=== PATIENT | female | born 1945 | race Caucasian/White ===

== ENCOUNTER → 2017-06-18 | Outpatient (CLI) | payer OTHER ==
[~2017-06-18] MED LIST: ADVAIR 250-501 EACH INH; CALCIUM + D SO1 EACH PO; CINNAMON ALPHA1 EACH PO; CO Q10100 MG PO; COMBIVENT INH; DEXILANT60 MG PO; EVISTA; FISH OIL 1,0001 EAC5 PO; FLU SHOT; IBUPROFEN 800800 M1 PO; MIRALAX17 GM PO; MIRAPEX0.125 MG PO; NEURONTIN250 MG/5 M PO; NORCO 10-325 T1 EACH PO; NORCO 5-325 TA1 EACH PO; PROCARDIA XL30 MG; PROLIA60 MG/1 ML SQ; TRAMADOL 50 MG50 MG PO; VITAMIN B-12100 MC1 PO; VOLTAREN GEL 1100 G2 TOP; [UNRECOGNIZED DRUG - OTHER]
--- NOTE | 2017-06-27 09:00 | PAINCON ---
[place] [address] PAIN MANAGEMENT CONSULTATION Name: PILAR FERMIN Room: [facility]#: [id number] Admission: 06/18/17 Attend Phys: Jagdish Fuentes DO Discharge: Date of : 45 Report #: [id number] THIS REPORT FOR: //name// CC: SUKHJINDER Fuentes DATE OF SERVICE: 06/18/2017 CHIEF COMPLAINT: Low back pain, left lower extremity pain and paresthesias. HISTORY OF PRESENT ILLNESS: As you know, the patient is a 71-year-old female who returns today in followup visit with recurrent low back pain, left lower extremity pain with paresthesias. The patient places pain score at 6/10. She reports 50% improvement in overall pain with previous epidural injection. She states pain is exacerbated with activities, cold temperature, walking, sitting, standing, lifting and bending; improves with medications, heat, cold compresses and epidural injections. She returns today in followup visit to undergo next in the series of epidural injections in hopes of improving pain further. ALLERGIES: No known drug allergies. CURRENT MEDICATIONS: Calcium carbonate, Prolia, Dexilant, Voltaren, Advair, Motrin, ipratropium bromide, nifedipine, MiraLax, Ultram, Mirapex. SOCIAL HISTORY: The patient continues to smoke. Denies IV or illicit drug use. Denies any chronic alcohol use. She is unaccompanied today. IMAGING: No new imaging available. PHYSICAL EXAMINATION: VITAL SIGNS: Blood pressure 149/76, pulse is 96, respiratory rate 16 and unlabored. The patient is 94% on room air, current temperature 98.6 degrees Fahrenheit, height 5 feet 1 inch tall, weight 127.6 pounds, BMI calculated at 24.5. GENERAL: Well-developed, well-nourished, well-hydrated 71-year-old female, appears her stated age, placing current pain score 6/10. HEENT: Normocephalic, atraumatic. Pupils equal, round, reactive to light. Extraocular muscles are intact. Sclerae nonicteric, without injection. EXTREMITIES: Show no clubbing, no cyanosis, no edema. MUSCULOSKELETAL: Seated straight leg raising negative. Supine straight leg raising positive left. EDITH test negative. Gait slightly antalgic favoring left lower extremity over right. ASSESSMENT: 1. Sympt[place] [address] PAIN MANAGEMENT CONSULTATION Name: PILAR FERMIN Room: [facility]#: [id number] Admission: 06/18/17 Attend Phys: Jagdish Fuentes DO Discharge: Date of : 45 Report #: [id number] 2. Lumbosacral spondylosis with radiculopathy. 3. Lumbar degeneration. 4. Facet arthropathy of the lumbar spine. 5. Chronic intractable pain. 6. Tobacco habituation. PLAN: 1. The patient has returned today in followup visit requesting to undergo the next in a series of epidural injections. The patient reported about 50% improvement in overall pain with previous epidural injection. Unfortunately, the patient has had a recurrence of low back pain, left lower extremity pain for which she now provides pain score of 6/10. She returns today to undergo the next in a series of epidural injections. She has been advised the risks and benefits of the procedure, states understood and wished to proceed. 2. The patient and I had a long discussion today about the effects of chronic nicotine exposure and chronic pain. We have advised the patient to discontinue smoking as this is promoting chronic pain, this is mainly done through the descending pain pathway. We discussed this with the patient today. The patient understands the risks that she continues to undergo with continuation of smoking. I have advised the patient to discontinue his activity as this is noted to propagate chronic pain issues. She will consider her options. We did offer the patient assistance with discontinuation of tobacco use. This would include medication management and psychiatric assistance. 3. We will see the patient back in followup visit on an as needed basis for next in a series of epidural injections. PROCEDURE NOTE DESCRIPTION OF PROCEDURE: Lumbar epidural steroid injection under fluoroscopic guidance. After obtaining written consent, the patient was taken back to fluoroscopy suite, placed in prone position with pillow under abdomen to decrease lumbar lordosis. Skin overlying lumbosacral area then prepped and draped in aseptic fashion. Lumbar intervertebral spaces were identified by AP fluoroscopy. Skin and subcutaneous tissue overlying target site of injection was anesthetized with 3 mL of 1% lidocaine. A 20-gauge 3-1/2 inch Tuohy needle was advanced under fluoroscopic guidance towards the epidural space using a left paramedian approach. Epidural space identified using loss of resistance to air technique. After negative aspiration for heme or cerebrospinal fluid, 1 mL of Omnipaque was injected. Lumbar epidurogram was confirmed using both AP and lateral fluoroscopy. After negative aspiration for heme or cerebrospinal fluid, 5 mL of a solution containing 2 mL 40 mg per mL, 80 mg total triamcinolone, 3 mL lidocaine 1% injected slowly. Needle retracted shelter, flushed with 1 mL of 1% [place] [address] PAIN MANAGEMENT CONSULTATION Name: PILAR FERMIN Room: [facility]#: [id number] Admission: 06/18/17 Attend Phys: Jagdish Fuentes DO Discharge: Date of : 45 Report #: [id number] Sterile bandage was placed over injection site. The patient tolerated the procedure well, carefully escorted to Recovery Room in stable condition. No apparent complication. After meeting discharge criteria, the patient discharged home. <ELECTRONICALLY SIGNED> By: Jagdish Fuentes DO 06/27/17 0900 [id number] Fuentes DO /nt
== END | disposition home or self-care (01) ==
LOC: M.PC 05-07 02:27
DX: M51.36 Other intervertebral disc degeneration, lumbar region (principal); M47.27 Other spondylosis with radiculopathy, lumbosacral region; M46.96 Unspecified inflammatory spondylopathy, lumbar region; G89.29 Other chronic pain; F17.210 Nicotine dependence, cigarettes, uncomplicated; Z79.899 Other long term (current) drug therapy; Z98.890 Other specified postprocedural states

== ENCOUNTER → 2017-08-16 | Outpatient (CLI) | payer OTHER | LOC: M.RAD 09:27 | DX: N64.4 Mastodynia (principal); R92.8 Other abnormal and inconclusive findings on diagnostic imaging of breast ==

== ENCOUNTER → 2017-09-11 | Outpatient (CLI) | payer OTHER ==
--- NOTE | 2017-10-05 09:09 | PAINCON ---
[address] [address] PAIN MANAGEMENT CONSULTATION Name: PILAR FERMIN Room: [facility]#: [id number] Admission: 09/11/17 Attend Phys: Romulo Barrett MD Discharge: Date of : 45 Report #: [id number] THIS REPORT FOR: //name// CC: Darryn Barrett DATE OF SERVICE: 09/11/2017 CHIEF COMPLAINT: "Pain in the low back and pain going down into my left leg." HISTORY OF PRESENT ILLNESS: The patient is a 72-year-old female who has been seen in the pain clinic. She has been followed by Dr. Jagdish Fuentes. She has had epidural steroid injections in the past. She is having pain and discomfort, which is radiating down into her left leg. She has been having pain for years. The pain has been problematic since 2011. She has undergone epidural steroid injections and gleaned benefits from these. She rates her pain as a 7/10 at this juncture. She notes that working exercise, walking on the treadmill and activities of this nature has gotten progressively worse over the past 7 months. Epidural steroid injections in the past have provided 90% pain improvement. Notes that on 09/05/2017, pain radiated down into her low back, left leg and pain level is risen to 6-7, now it is a 7/10 on most days. Finds that hydrocodone, ibuprofen, tramadol, still are helpful. ALLERGIES: No known drug allergies. MEDICATIONS: Calcium/vitamin D3/vitamin K, Prolia 60 mg syringe subq to increase bone density, Dexilant 60 mg for heartburn, Voltaren gel 1% 2 grams q.i.d. for pain, Advair 250/50 one puff b.i.d., ibuprofen 800 mg, Combivent 14.7 inhaler 1 puff q.i.d. p.r.n., Procardia 30 mg, MiraLax 17 grams, Ultram 50 mg, shingles vaccine in 2012, Mirapex at bedtime for restless leg syndrome. PAST MEDICAL HISTORY: 1. 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 2. Lumbar degeneration. 3. Facet arthropathy of the lumbar spine. 4. Chronic intractable pain. 5. Tobacco habituation. 6. Hypertension. 7. Stomach problems. 8. Gastroesophageal problems. 9. Chronic colon problems. 10. Joint disease/arthritis. 11. Pulmonary problems. 12. Chronic [place] [address] PAIN MANAGEMENT CONSULTATION Name: PILAR FERMIN Room: [facility]#: [id number] Admission: 09/11/17 Attend Phys: Romulo Barrett MD Discharge: Date of : 45 Report #: [id number] SURGICAL HISTORY: Carpal tunnel 3 least. SOCIAL HISTORY: She is retired. Smokes 1-1/2 packs of cigarettes per day, has smoked for 50 years. Denies use of alcohol. REVIEW OF SYSTEMS: Generally healthy, night sweats, fatigue, ringing in the ears, hearing loss, chronic frequent cough, asthma/wheezing, awakened at night to urinate, lightheadedness, numbness and tingling sensation in the lower extremities, insomnia, slow to heal, easy bruising. LABORATORY DATA: No new laboratory values available at the time of her review. PAIN CLINIC ASSESSMENT: 1. Osteoarthritis. 2. Height 5 feet 1 inch tall. 3. Weight 133 pounds, BMI is 25. 4. Vital signs: Blood pressure 149/70, heart rate 94, respiratory rate 16, room air saturation 93, temperature 98.3. 5. Pain intensity 12/04. 6. Fall risk. The patient has not fallen in the last 3 months. 7. Blood thinner. The patient is on a blood thinner. 8. Hypertension. The patient is being treated for hypertension. 9. Opioid greater than 6 months. The patient use hydrocodone for pain control. 10. Risk assessment tool. 11. Functional assessment tool. 12. Recreational drug use. Denies use of recreational drugs. 13. Tobacco: The patient smokes 2-5 cigarettes daily. States that she has smoked for 50 years. 14. Alcohol: The patient denies regular use of alcoholic beverages. PHYSICAL EXAMINATION: General: The patient is a well-developed female. She appears her stated age. She is alert and oriented x 3. Speech is fluent. Affect is appropriate. HEENT: Normocephalic, atraumatic. Extraocular eye muscles intact. Sclerae nonicteric. Mucous membranes are moist. Hearing is within normal limits. NECK: Without adenopathy or JVD. Good range of motion. HEART: Regular rate. S1, S2. LUNGS: Somewhat decrease and difficult to hear in the lower lung hernandez. ABDOMEN: Nontender. MUSCULOSKELETAL: Without significant scoliosis, kyphosis or lordosis. Upper extremity muscle strength is judged to be 5/5 for the major muscle groups. Lower extremity pain in the low back with pain radiating down into the left leg with sensory changes with numbness, tingling and weakness in the L5-S1 dermatomal distribution. The patient continues to walk with a slight antalgic gait. [address] [place] [address] PAIN MANAGEMENT CONSULTATION Name: PILAR FERMIN Room: [facility]#: [id number] Admission: 09/11/17 Attend Phys: Romulo Barrett MD Discharge: Date of : 45 Report #: [id number] IMPRESSION: 1. Symptomatic lumbar radiculopathy. 2. Lumbar lumbar spondylosis with radiculopathy. 3. Lumbar degeneration. 4. Facet arthropathy of the lumbar spine. 5. Chronic intractable pain. 6. Tobacco habituation. 7. Hypertension. 8. History of pneumonia, lower lobe in 2017 in April. 9. Colon problems. 10. Stomach problems. 11. Joint disease/arthritis. 12. Restless legs syndrome. RECOMMENDATIONS: We discussed treatment options with the patient. It appears that she continues to have pain and discomfort, which is problematic. Epidural steroid injection in the past have been beneficial. She has gleaned greater than 90% improvement. At this juncture, she feels she would like to proceed with another epidural steroid injection. Risks and benefits of the procedure were reviewed. They were discussed. The patient will return in the pain clinic at which time she will then undergo an epidural steroid injection. We would like to thank you for letting us participate in her care. We hope she continues to improve. <ELECTRONICALLY SIGNED> By: Rmoulo Barrett MD 10/05/17 0909 1234 [id number]. Riccardo Barrett MD /clifford
== END ==
LOC: M.PC 01:28
DX: M19.90 Unspecified osteoarthritis, unspecified site (principal); M54.16 Radiculopathy, lumbar region; M47.26 Other spondylosis with radiculopathy, lumbar region; I10 Essential (primary) hypertension; G89.29 Other chronic pain

== ENCOUNTER → 2017-09-13 | Outpatient (CLI) | payer OTHER ==
--- NOTE | 2017-10-05 09:09 | PAINCON ---
[address] [address] PAIN MANAGEMENT CONSULTATION Name: PILAR FERMIN Room: [facility].#: [id number] Admission: 09/13/17 Attend Phys: Romulo Barrett MD Discharge: Date of : 45 Report #: [id number] THIS REPORT FOR: //name// CC: MD Romulo [place] DATE OF SERVICE: 09/13/2017 CHIEF COMPLAINT: Pain in the low back and down into the left leg. HISTORY OF PRESENT ILLNESS: The patient is a 72-year-old female who has been seen in the pain clinic by Dr. Jagdish Fuentes. She is having pain and discomfort in her low back with pain radiating down into her left leg. This is my first visit with the patient. She states that she has been having pain for years. She has undergone a number of procedures in the past which have been beneficial. She has had pain since 2011. Describes the pain as a continuous aching, gnawing, throbbing, sharp pain and often times it can be anywhere from 6-10 on a pain scale. Typically, her pain has been resolved favorably with the injections. At this juncture, she would like to proceed with an injection. She generally gets about 90% relief. She noticed that her pain worsened recently. She feels like she lifted too much this past week. The injection in May of 2017 provided 90% improvement and this continued to do well until 09/05/2017 when she noticed pain that radiated down to her low back into her left leg and caused pain to rise to the level of 6-7/10 at this juncture. She has continued to use hydrocodone, ibuprofen p.r.n. and tramadol as well to help control the pain. ALLERGIES: No known drug allergies. MEDICATIONS: Calcium/vitamin D3/vitamin K, Prolia 60 mg syringe subq for bone density, Dexilant 60 mg capsules for heartburn, Voltaren gel 1% 2 grams q.i.d. for pain, Advair 250/50 one puff b.i.d., ibuprofen 800 mg, Combivent 14.7 inhaler 1 puff q.i.d. p.r.n., Procardia 30 mg, MiraLax 17 grams, Ultram 50 mg, shingles vaccine 2012, Mirapex at bedtime for restless legs syndrome. PAST MEDICAL HISTORY: 1. Symptomatic lumbar radiculopathy with lumbosacral spondylosis with radiculopathy. 2. Lumbar degeneration. 3. Facet arthropathy of the lumbar spine. 4. Chronic intractable pain. 5. Tobacco habituation. 6. Hypertension. 7. Stomach problems. 8. [place]astro[place] [address] PAIN MANAGEMENT CONSULTATION Name: PILAR FERMIN Room: [facility]#: [id number] Admission: 09/13/17 Attend Phys: Romulo Barrett MD Discharge: Date of : 45 Report #: [id number] 9. Colon problems. 10. Joint disease/arthritis. 11. Pulmonary problems/COPD. PAST SURGICAL HISTORY: Carpal tunnel surgery. SOCIAL HISTORY: She is retired. Smokes 1/2 pack of cigarettes per day, has smoked for 50 years. Denies use of alcoholic beverages. REVIEW OF SYSTEMS: Indicates generally good health, night sweats, fatigue, ringing in the ears, hearing loss, chronic frequent cough, asthma/wheezing. awakens at night to urinate, lightheadedness, numbness and tingling sensation in the lower extremity, insomnia, slow to heal, easy bruising. LABORATORY DATA: No laboratory values are available at the time of our interview. PAIN CLINIC ASSESSMENT: 1. Osteoarthritis. 2. Height 5 feet 1 inch. Weight 133 pounds, BMI is 25. 3. Vital Signs: Blood pressure 148/71, heart rate 93, respiratory rate 16, room air saturation 92, temperature 98.4. Pain intensity 7/10. Pain is worsened while the patient was working in her garage. Fall risk: The patient has not fallen in the last 3 months. 4. Blood thinner: The patient is on a blood thinner. 5. Hypertension. The patient is being treated for hypertension. 6. Opioid therapy greater than 6 months. The patient rarely uses hydrocodone medication for pain control. 7. Risk assessment tool. 8. Functional assessment tool. 9. Recreational use. 10. The patient denies use of recreational drugs. 11. Tobacco: The patient smokes 2-5 cigarettes per day, has smoked for 50 years. 12. Alcohol: The patient denies the use of alcoholic beverages. PHYSICAL EXAMINATION: GENERAL: The patient is a well-developed female. She appears her stated age. ORIENTATION: The patient is alert and oriented x 3. AFFECT: The patient's affect is appropriate. Speech is fluent. HEENT: Normocephalic, atraumatic. Extraocular muscles are intact. Mucous membranes are moist. Sclerae is nonicteric. Hearing is within normal limits. NECK: Without adenopathy or JVD. Good range of motion. HEART: Regular rate. S1, S2. LUNGS: Somewhat decreased. Difficult to hear in the lower lung hernandez. ABDOMEN: Nontender. [address] [place] [address] PAIN MANAGEMENT CONSULTATION Name: PILAR FERMIN Room: [facility]#: [id number] Admission: 09/13/17 Attend Phys: Romulo Barrett MD Discharge: Date of : 45 Report #: [id number] MUSCULOSKELETAL: Within normal limits without significant scoliosis, kyphosis or lordosis. Upper extremity muscle strength is judged to be 5/5 for the major muscle groups in the upper extremity without sensory changes. Lower extremity, pain in the low back area with pain radiating down into the left leg with numbness and tingling in the L5-S1 distribution. The patient walks with slight antalgic gait. IMPRESSION: 1. Symptomatic lumbar radiculopathy. 2. Lumbar spondylosis with radiculopathy. 3. Lumbar degeneration. 4. Facet arthropathy of the lumbar spine. 5. Chronic intractable pain. 6. Tobacco habituation. 7. Hypertension. 8. History of pneumonia, lower lobe, 04/2017. 9. Colon problems. 10. Stomach problems, joint disease/arthritis. 11. Restless leg syndrome. RECOMMENDATIONS: We discussed treatment options with the patient. Risks and benefits of an epidural steroid injection were again reviewed. The patient has been successful with epidural steroid injections in the past. Notes that her pain improved by about 90% after the last injection. It felt like her activity level increased. In the last weekend, noted worsening of pain and discomfort with resumption of pain in the lower extremity, now rated as 7/10. We will proceed with an epidural steroid injection. Risks and benefits of the procedure were again reviewed. They could include but are not limited to infection, increased muscle soreness, headache, bleeding, paralysis, worsening of pain, spinal headache. The patient elects to proceed. PROCEDURE NOTE: The patient was placed in the prone position. Fluoroscopy was used to identify the L5-S1 area. Anterior, posterior as well as lateral usage of the fluoroscopy was used. After the target area was noted, a 17-gauge Tuohy was advanced into the epidural space. The area was previously be infiltrated with 0.5% bupivacaine. A total of 80 mg Depo-Medrol, 40 mg triamcinolone and 2 mL of 0.25% bupivacaine was injected. The patient tolerated the procedure well. There were no complications. She remained in the pain clinic for an appropriate amount of time. She will follow up in the future as needed. We would like to thank you for letting us participate in her care. We hope she continues to improve. <ELECTRONICALLY SIGNED> By: Romulo Barrett MD 10/05/17 0909 [id number]. Riccardo Barrett MD /clifford
== END | disposition home or self-care (01) ==
LOC: M.PC 03:26
DX: M51.16 Intervertebral disc disorders with radiculopathy, lumbar region (principal); M47.27 Other spondylosis with radiculopathy, lumbosacral region; M46.96 Unspecified inflammatory spondylopathy, lumbar region; G89.29 Other chronic pain; I10 Essential (primary) hypertension; K21.9 Gastro-esophageal reflux disease without esophagitis; M19.90 Unspecified osteoarthritis, unspecified site; G25.81 Restless legs syndrome; F17.210 Nicotine dependence, cigarettes, uncomplicated; Z87.19 Personal history of other diseases of the digestive system; Z79.891 Long term (current) use of opiate analgesic; Z79.01 Long term (current) use of anticoagulants; Z98.890 Other specified postprocedural states; Z79.899 Other long term (current) drug therapy

== ENCOUNTER → 2017-11-08 | Outpatient (CLI) | payer OTHER | LOC: M.WC 09:55 | DX: I87.332 Chronic venous hypertension (idiopathic) with ulcer and inflammation of left lower extremity (principal); L97.822 Non-pressure chronic ulcer of other part of left lower leg with fat layer exposed; J45.20 Mild intermittent asthma, uncomplicated; K21.9 Gastro-esophageal reflux disease without esophagitis; Z68.23 Body mass index [BMI] 23.0-23.9, adult; M19.90 Unspecified osteoarthritis, unspecified site; F17.200 Nicotine dependence, unspecified, uncomplicated ==

== ENCOUNTER → 2017-11-15 | Outpatient (CLI) | payer OTHER | LOC: M.WC 03:55 | DX: L97.821 Non-pressure chronic ulcer of other part of left lower leg limited to breakdown of skin (principal); I10 Essential (primary) hypertension; K21.9 Gastro-esophageal reflux disease without esophagitis; M19.90 Unspecified osteoarthritis, unspecified site; J45.909 Unspecified asthma, uncomplicated; F17.200 Nicotine dependence, unspecified, uncomplicated ==

== ENCOUNTER → 2017-11-19 | Outpatient (CLI) | payer OTHER | LOC: M.WC 11:00 | DX: I87.332 Chronic venous hypertension (idiopathic) with ulcer and inflammation of left lower extremity (principal); L97.821 Non-pressure chronic ulcer of other part of left lower leg limited to breakdown of skin; K21.9 Gastro-esophageal reflux disease without esophagitis; M19.90 Unspecified osteoarthritis, unspecified site; J45.20 Mild intermittent asthma, uncomplicated; F17.200 Nicotine dependence, unspecified, uncomplicated ==

== ENCOUNTER → 2017-11-22 | Outpatient (CLI) | payer OTHER | LOC: M.WC 03:22 | DX: I87.332 Chronic venous hypertension (idiopathic) with ulcer and inflammation of left lower extremity (principal); L97.821 Non-pressure chronic ulcer of other part of left lower leg limited to breakdown of skin; J45.20 Mild intermittent asthma, uncomplicated; K21.9 Gastro-esophageal reflux disease without esophagitis; Z68.23 Body mass index [BMI] 23.0-23.9, adult; J45.909 Unspecified asthma, uncomplicated; M19.90 Unspecified osteoarthritis, unspecified site; F17.200 Nicotine dependence, unspecified, uncomplicated ==

== ENCOUNTER → 2018-02-28 | Outpatient (CLI) | payer OTHER ==
--- NOTE | 2018-04-10 15:49 | PAINCON ---
[address] [address] PAIN MANAGEMENT CONSULTATION Name: PILAR FERMIN [id number] Admission: 02/28/18 Attend Phys: Romulo Barrett MD Discharge: Date of : 45 Report #: [id number] THIS REPORT FOR: //name// CC: Darryn Barrett DATE OF SERVICE: 02/28/2018 CHIEF COMPLAINT: Low back pain and pain down in the left leg. HISTORY OF PRESENT ILLNESS: The patient is a 72-year-old female who has been seen in the Pain Clinic because of lumbar radicular pain. She has undergone epidural steroid injections over the years. She is gleaned benefits from these. She is returning today indicating that she is having pain in her back, hip down into the buttocks. She underwent an injection in 08/2017. She received 100% relief from the pain. She has noticed a gradual return of pain and discomfort to the point that now she is at a level of 6/10. It involves her left leg. She is having some numbness in this area. She has returned for an injection. Finds that [place] 5/325 helpful. She rarely uses them. Uses ibuprofen p.r.n. and tramadol p.r.n. Pain has been problematic since about 2011. It tends to wax and wane. Denies any new trauma. Denies any bowel or bladder changes. ALLERGIES: No known drug allergies. MEDICATIONS: Calcium/vitamin D3/vitamin K, Prolia 60 mg syringe subq for bone density, Dexilant 60 mg for heartburn, Voltaren gel 1% q.i.d. to the affected upper extremity area, Advair 250/50 one puff b.i.d., ibuprofen 800 mg, Combivent 14 mg inhaler 1 puff q.i.d. p.r.n., Procardia 30 mg, MiraLax 17 grams, Ultram 50 mg, shingles vaccine in 2012, Mirapex at bedtime for restless legs syndrome. PAIN CLINIC ASSESSMENT/PQRS: 1. Osteoarthritis. The patient does have some arthritic problems. She has not been treated for rheumatoid arthritis. 2. Height 5 feet 1 inch, weight 129 pounds and BMI is 24.5. 3. Vital signs: Blood pressure 163/67, heart rate 95, respiratory rate 16, room air saturation 96% and temperature 98.3. 4. Pain intensity 6/10. 5. The patient has not fallen in the last 3 months. 6. Blood thinner. The patient is not on a blood thinning medication. 7. Hypertension. The patient is being treated for hypertension. 8. Opioid therapy. Greater than 6 weeks. The patient rarely uses hydrocodone to control pain. 9. Risk assessment tool, low for opioid use. 10. Functional assessment tool. 11. Recreational drug use: The patient denies. 12. Tobacco: The patient smokes 2-5 cigarettes daily smoked [place] [address] PAIN MANAGEMENT CONSULTATION Name: ZANDERPILAR Ekaterina Room: [facility]#: [id number] Admission: 02/28/18 Attend Phys: Romulo Barrett MD Discharge: Date of : 45 Report #: [id number] 13. Alcohol: The patient denies use of alcoholic beverages. PHYSICAL EXAMINATION: GENERAL: The patient is a well-developed white female. Appears her stated age. She is alert and oriented x 3. Affect is appropriate. Speech is fluent. HEENT: Normocephalic, atraumatic. Extraocular eye muscles intact. Sclerae nonicteric. Mucous membranes are moist. Hearing is within normal limits. NECK: Without adenopathy or JVD. Good range of motion. HEART: Regular rate. S1, S2. LUNGS: Somewhat decreased difficulty hear secondary to patient effort. ABDOMEN: Nontender. Bowel sounds present. MUSCULOSKELETAL: Without significant scoliosis, kyphosis or lordosis. Upper extremity muscle strength is judged to be 5-/5 for the major muscle groups without sensory change lower extremity. The patient has pain and discomfort radiating down the lower portion of her back with pain radiating down into the left leg in the L5-S1 dermatomal distribution. Notes some pain in the leg and walks with an antalgic gait. IMPRESSION: 1. Lumbar radiculopathy, L5-S1 nerve root irritation. 2. Lumbar spondylosis with radiculopathy. 3. Lumbar degeneration. 4. Facet arthropathy of the lumbar spine. 5. Chronic intractable pain. 6. Tobacco habituation. 7. Hypertension. 8. History of pneumonia, lower lobe in 04/2017. 9. Colon problems. 10. Stomach problems. 11. Joint disease/arthritis. 12. Restless leg syndrome. RECOMMENDATIONS: We discussed treatment options with the patient. Risks and benefits of an epidural steroid injection were discussed. The patient gleaned 100% improvement after the last epidural steroid injection. She has returned today noticing a recurrence of pain. It has been slow in nature. She rates it as 6/10 at this juncture. Given that she has had great results in the past. I think it would be reasonable to proceed with another injection. The risks and benefits of the procedure were again reviewed with the patient. Possible complication of the procedure, which could include, but are not limited to infection, increased muscle soreness, headache, bleeding, no improvement in pain, worsening of pain and the patient elects to proceed. PROCEDURE NOTE: The patient was taken to the procedure area. She was assisted in getting on the examination table. Her back was sterilely prepped with a Betadine solution. Pillow was placed under [place] [address] PAIN MANAGEMENT CONSULTATION Name: PILAR FERMIN Room: [facility]#: [id number] Admission: 02/28/18 Attend Phys: Romulo Barrett MD Discharge: Date of : 45 Report #: [id number] positioning. Fluoroscopy using anterior and posterior as well as lateral viewing was implemented. The patient's back was sterilely prepped with a chlorhexidine solution and allowed to dry. A 0.25% bupivacaine was infiltrated at the left L5-S1 interspace. Fluoroscopy using a left lateral direction of the Tuohy needle was implemented. After appropriate placement, a total of 80 mg Depo-Medrol, 40 mg triamcinolone and 2 mL of 0.25% bupivacaine was injected. The patient tolerated the procedure well. There were no complications. She was taken to the recovery room where she remained for an appropriate amount of time. She will follow up in the future as needed. We would like to thank you for letting us participate in her care. A total of 9 seconds fluoroscopy time was used. Thank the patient's pain had decreased to 0 at the time of discharge. We would like to thank you for letting us participate in her care. We hope she continues to improve. <ELECTRONICALLY SIGNED> By: Romulo Barrett MD 04/10/18 1549 [id number]. Riccardo Barrett MD /nt
== END | disposition home or self-care (01) ==
LOC: M.PC 04:47
DX: M51.16 Intervertebral disc disorders with radiculopathy, lumbar region (principal); M47.26 Other spondylosis with radiculopathy, lumbar region; M12.88 Other specific arthropathies, not elsewhere classified, other specified site; G89.29 Other chronic pain; I10 Essential (primary) hypertension; F17.210 Nicotine dependence, cigarettes, uncomplicated; G25.81 Restless legs syndrome; Z79.899 Other long term (current) drug therapy; Z79.891 Long term (current) use of opiate analgesic; Z98.890 Other specified postprocedural states

== ENCOUNTER → 2018-08-15 | Outpatient (CLI) | payer OTHER ==
--- NOTE | ~2018-08-15 | PAINCON ---
[address] [address] PAIN MANAGEMENT CONSULTATION Name: PILAR FERMIN Room: [facility].#: [id number] Admission: 08/15/18 Attend Phys: Romulo Barrett MD Discharge: Date of : 45 Report #: [id number] THIS REPORT FOR: //name// CC: Darryn Barrett DATE OF SERVICE: 08/15/2018 CHIEF COMPLAINT: Low back pain with pain radiating down to the left leg with numbness and tingling. HISTORY: The patient is a 73-year-old female who has been followed in the Pain Clinic because of low back pain. She has undergone epidural steroid injections. These have been beneficial over the years. Continues to have pain that waxes and wanes. She has noticed that with activity, walking, sitting, standing, lifting and bending increase pain. Finds her medications are helpful. Rest is helpful. Notes that she received great relief over 4 months benefit from the last injection in 02/2018. She has returned today for another injection. Over the last month, she has noticed increased pain level. Rates it as a 7-8/10. She feels that there is some numbness and weakness in the lower extremities on the left side in her left leg. She has been using the [place] and ibuprofen as well as tramadol to help control the pain. ALLERGIES: No known drug allergies. MEDICATIONS: Calcium, vitamin D3, vitamin K, Prolia 60 mg syringe subq for bone density, Dexilant 60 mg for heartburn, Voltaren gel 1% q.i.d. to the affected upper extremity, Advair 250 mg/50 one puff b.i.d., ibuprofen 800 mg, Combivent 14 mg inhaler 1 puff q.i.d. p.r.n., Procardia 30 mg, MiraLax 17 grams, Ultram 50 mg, shingles vaccine 2013, Mirapex at bedtime for restless leg. PAIN CLINIC ASSESSMENT/PQRS. 1. The patient has some arthritic changes in the lower portion of her back. She is not being treated for rheumatoid arthritis. 2. Height 5 feet 1 inch, weight 131 pounds, BMI is 24. 3. Blood pressure 134/52, heart rate 99, respiratory rate 16, room air saturation 95%, temperature 98.2. 4. Pain intensity 01/04. 5. Fall risk. The patient has not fallen in the last 3 months. 6. Blood thinner. The patient is not on a blood thinning medication. 7. Hypertension. The patient is being treated for hypertension. 8. Opioid greater than 6 weeks. The patient rarely uses hydrocodone to help with pain control. 9. Risk assessment tool, low for opioid use. 10. Functional assessment tool. 11. Recreational drug use. The patient denies use [place] [address] PAIN MANAGEMENT CONSULTATION Name: PILAR FERMIN Room: [facility]#: [id number] Admission: 08/15/18 Attend Phys: Romulo Barrett MD Discharge: Date of : 45 Report #: [id number] 12. Tobacco: The patient smokes 2-5 cigarettes daily and has for the last 50 years. 13. Alcohol: The patient denies use of alcoholic beverages. PHYSICAL EXAMINATION: GENERAL: The patient is well-developed, well-nourished white female. Appears her stated age. She is alert and oriented x 3. Affect is appropriate. Speech is fluent. HEENT: Normocephalic, atraumatic. Extraocular eye muscles intact. Sclerae nonicteric. Mucous membranes are moist. Hearing is within normal limits. NECK: Without adenopathy or JVD. HEART: Regular rate. S1, S2. LUNGS: Decreased secondary to poor patient effort. ABDOMEN: Nontender. Bowel sounds are present. MUSCULOSKELETAL: Without significant scoliosis, kyphosis or lordosis. Upper extremity muscle strength is judged to be 4+/5 for the major muscle groups in the upper extremity. The patient has some pain and discomfort with pain that is radiating down into the left L5-S1 distribution. Muscle strength in the lower extremities is judged to be 4+/5 for the major muscle groups in the lower extremity. The patient does walk with an antalgic gait. IMPRESSION: 1. Lumbar radiculopathy, L5-S1 nerve root irritation. 2. Lumbar spondylosis with radiculopathy. 3. Lumbar degeneration. 4. Facet arthropathy of the lumbar spine. 5. Chronic intractable pain. 6. Tobacco habituation. 7. Hypertension. 8. History of pneumonia, lower lobe, 04/2017. 9. Colon problems. 10. Stomach problems. 11. Joint disease/arthritis. 12. Restless leg syndrome. RECOMMENDATIONS: We discussed treatment options with the patient. Risks and benefits of an epidural steroid injection were discussed. They include but are not limited to infection, worsening pain, no improvement in pain, trauma, spinal headache and the patient elects to proceed. PROCEDURE NOTE: The patient was taken to the procedure area. She was assisted in getting on the examination table. A pillow was placed under her abdomen to bolster improve positioning. Fluoroscopy using anterior, posterior as well as lateral viewing were implemented. The patient's back was sterilely prepped with a Betadine solution. The L5-S1 area was sterilely prepped with Betadine. It was allowed to dry. A 25-gauge needle was then advanced [place] [address] PAIN MANAGEMENT CONSULTATION Name: PILAR FERMIN Room: [facility]#: [id number] Admission: 08/15/18 Attend Phys: Romulo Barrett MD Discharge: Date of : 45 Report #: [id number] midline L5-S1 area. A 17-gauge Tuohy with loss of resistance technique was used to gain access to the epidural space. There was no CSF, heme or paresthesia. A total of 80 mg Depo-Medrol, 40 mg triamcinolone and 2 mL of 0.25% bupivacaine was injected. The patient tolerated the procedure well. There were no complications. She remained in the Pain Clinic for an appropriate amount of time. The patient has been given a script for her medications to help curtail the restless leg as well as the lumbar radicular pain that she has been experiencing. We would like to thank you for letting us participate in her care. We hope she continues to improve. By: [id number] [id number]. Riccardo Barrett MD /nt
== END | disposition home or self-care (01) ==
LOC: M.PC 04:48
DX: M51.16 Intervertebral disc disorders with radiculopathy, lumbar region (principal); M47.26 Other spondylosis with radiculopathy, lumbar region; G89.29 Other chronic pain; I10 Essential (primary) hypertension; K63.89 Other specified diseases of intestine; K92.9 Disease of digestive system, unspecified; F17.290 Nicotine dependence, other tobacco product, uncomplicated; M19.90 Unspecified osteoarthritis, unspecified site; G25.81 Restless legs syndrome; Z87.01 Personal history of pneumonia (recurrent); Z79.899 Other long term (current) drug therapy; Z98.890 Other specified postprocedural states

== ENCOUNTER → 2018-09-10 | Outpatient (CLI) | payer OTHER | LOC: M.WC 05:15 | DX: I87.332 Chronic venous hypertension (idiopathic) with ulcer and inflammation of left lower extremity (principal); L97.821 Non-pressure chronic ulcer of other part of left lower leg limited to breakdown of skin; M15.0 Primary generalized (osteo)arthritis; K21.9 Gastro-esophageal reflux disease without esophagitis; G25.81 Restless legs syndrome; J42 Unspecified chronic bronchitis; J45.20 Mild intermittent asthma, uncomplicated; F17.210 Nicotine dependence, cigarettes, uncomplicated; Z68.23 Body mass index [BMI] 23.0-23.9, adult ==

== ENCOUNTER → 2018-09-17 | Outpatient (CLI) | payer OTHER | LOC: M.WC 04:49 | DX: I87.332 Chronic venous hypertension (idiopathic) with ulcer and inflammation of left lower extremity (principal); L97.821 Non-pressure chronic ulcer of other part of left lower leg limited to breakdown of skin; I10 Essential (primary) hypertension; G25.81 Restless legs syndrome; K21.9 Gastro-esophageal reflux disease without esophagitis; J42 Unspecified chronic bronchitis; J45.20 Mild intermittent asthma, uncomplicated; M15.0 Primary generalized (osteo)arthritis; F17.210 Nicotine dependence, cigarettes, uncomplicated ==

== ENCOUNTER → 2018-09-24 | Outpatient (CLI) | payer OTHER | LOC: M.WC 04:50 | DX: I87.332 Chronic venous hypertension (idiopathic) with ulcer and inflammation of left lower extremity (principal); L97.821 Non-pressure chronic ulcer of other part of left lower leg limited to breakdown of skin; G25.81 Restless legs syndrome; I10 Essential (primary) hypertension; J45.20 Mild intermittent asthma, uncomplicated; J42 Unspecified chronic bronchitis; K21.9 Gastro-esophageal reflux disease without esophagitis; M15.0 Primary generalized (osteo)arthritis; F17.210 Nicotine dependence, cigarettes, uncomplicated ==

== ENCOUNTER → 2018-09-27 | Outpatient (CLI) | payer OTHER | LOC: M.WC 13:30 | DX: I87.332 Chronic venous hypertension (idiopathic) with ulcer and inflammation of left lower extremity (principal); L97.821 Non-pressure chronic ulcer of other part of left lower leg limited to breakdown of skin; G25.81 Restless legs syndrome; J42 Unspecified chronic bronchitis; J45.20 Mild intermittent asthma, uncomplicated; K21.9 Gastro-esophageal reflux disease without esophagitis; M15.0 Primary generalized (osteo)arthritis; F17.210 Nicotine dependence, cigarettes, uncomplicated ==

== ENCOUNTER → 2018-10-01 | Outpatient (CLI) | payer OTHER | LOC: M.WC 04:31 | DX: I87.332 Chronic venous hypertension (idiopathic) with ulcer and inflammation of left lower extremity (principal); L97.821 Non-pressure chronic ulcer of other part of left lower leg limited to breakdown of skin; G25.81 Restless legs syndrome; J42 Unspecified chronic bronchitis; J45.20 Mild intermittent asthma, uncomplicated; M15.0 Primary generalized (osteo)arthritis; K21.9 Gastro-esophageal reflux disease without esophagitis; F17.210 Nicotine dependence, cigarettes, uncomplicated ==

== ENCOUNTER 2018-10-04 09:39 | Emergency (ER) | payer OTHER ==
[~2018-10-04] VITALS: Ht 152.4 cm; Wt 55.8 kg
[2018-10-04] MEDS ORDERED: MIRAPEX0.125 MG PO (09:59)
[2018-10-04 10:21] LABS: ABSOLUTE BASOPHILS 0.1 thou/uL (0.0-0.2); ABSOLUTE EOSINOPHILS 0.2 thou/uL (0.0-0.7); ABSOLUTE LYMPHOCYTES 2.5 thou/uL (0.8-5.3); ABSOLUTE MONOCYTES 1.5 thou/uL (0.0-1.2); ABSOLUTE NEUTROPHILS 12.4 thou/uL (1.6-8.1); BASOPHILS 0.5 %; EOSINOPHILS 1.3 %; HEMATOCRIT 41.5 % (37.0-47.0); HEMOGLOBIN 13.6 gm/dL (12.0-15.0); LYMPHOCYTES 15.2 %; MCH 29.6 pg (26.0-34.0); MCHC 32.8 g/dL (28.0-37.0); MCV 90.1 fL (80.0-100.0); NUCLEATED RBCS 0 /100WBC; PLATELET COUNT* 304 thou/uL (150-400); RBC 4.61 mil/uL (4.20-5.00); RDW-CV 16.7 % (10.5-14.5); WBC 16.7 thou/uL (4.0-11.0)
[2018-10-04 10:40] LABS: ANION GAP 7 mmol/L (7-16); BUN 16 mg/dL (7-18); CALCIUM 10.2 mg/dL (8.5-10.1); CHLORIDE 99 mmol/L (98-107); CO2 27 mmol/L (21-32); CREATININE 0.8 mg/dL (0.6-1.3); GLUCOSE 136 mg/dL (70-99); POTASSIUM 4.2 mmol/L (3.5-5.1); SODIUM 133 mmol/L (136-145); TROPONIN-I LEVEL <0.06 ng/mL (<0.06)
[2018-10-04 10:44] LABS: ALBUMIN 3.2 g/dL (3.4-5.0); ALKALINE PHOSPHATASE 78 U/L (46-116); SGOT 15 U/L (15-37); SGPT 22 U/L (30-65); TOTAL BILIRUBIN 0.4 mg/dL (<0.1-1.0); TOTAL PROTEIN 6.7 g/dL (6.4-8.2)
[2018-10-04 12:38] LABS: URINE BILIRUBIN NEGATIVE (Negative); URINE BLOOD NEGATIVE (Negative); URINE CLARITY CLEAR; URINE COLOR YELLOW; URINE GLUCOSE-RANDOM NEGATIVE (Negative); URINE KETONES NEGATIVE (Negative); URINE LEUKOCYTES-REFLEX TRACE (Negative); URINE NITRITE-REFLEX NEGATIVE (Negative); URINE PROTEIN NEGATIVE (Negative); URINE SPECIFIC GRAVITY <= 1.005 (1.005-1.030); URINE UROBILINOGEN 0.2 E.U./dl (0.2-1.0)
[2018-10-04 12:56] LABS: BACTERIA-REFLEX 1-9 Few /HPF (None Seen); MUCUS 0-3 Light strn/LPF (None Seen); URINE RBC 0-2 Rare /HPF (0-2); URINE WBC-REFLEX 0-5 Rare /HPF (0-5)
[2018-10-04 12:57] LABS: CRYSTALS None Seen /LPF (None Seen); HYALINE CASTS 4-10 Moderate /LPF (None Seen); SQUAMOUS 4-10 Moderate /LPF (0-3)
[2018-10-04 13:50] VITALS: BP 153/56
--- NOTE | 2018-10-04 16:37 | EKG ---
[place] [address] ELECTROCARDIOGRAM REPORT Name: PILAR FERMIN Room: [facility]#: [id number] Admission: 10/04/18 Attend Phys: Discharge: 10/04/18 Date of : 45 Report #: [id number] THIS REPORT FOR: //name// [facility] ED Test Date: 2018-10-04 Test Time: 09:49:37 Pat Name: PILAR FERMIN Department: Room: Gender: F Labor Relations Manager: Tylor COHN : 1945 Requested By: Kelsey oHwell Order Number: [id number] MD: Colin Georges Measurements Intervals [place] Rate: 89 P: 66 MT: 140 QRS: 73 QRSD: 74 T: 72 QT: 333 QTc: 406 Interpretive Statements Sinus rhythm Consider left ventricular hypertrophy Anterior Q waves, possibly due to LVH Compared to ECG 05/15/2011 08:07:17 Left ventricular hypertrophy now present Q waves now present Electronically Signed On 10-04-2018 16:37:21 CDT by Colin Georges [email or web address] <ELECTRONICALLY SIGNED> By: Colin Georges MD, [facility] 10/04/18 1637 0949 0949 Colin Georges MD, [facility] /EPI
== END 2018-10-04 13:52 | disposition home or self-care (01) ==
LOC: M.ERS 09:39
PROVIDERS: Personal Emergency Response Attendant
DX: I95.9 Hypotension, unspecified (principal); F17.200 Nicotine dependence, unspecified, uncomplicated

== ENCOUNTER → 2019-01-16 | Outpatient (CLI) | payer OTHER | LOC: M.RAD 09:42 | DX: Z12.31 Encounter for screening mammogram for malignant neoplasm of breast (principal) ==

== ENCOUNTER → 2020-03-11 | Outpatient (CLI) | payer OTHER ==
[~2020-03-11] MED LIST changes: +HYDROCODON-ACE1 EAC5 PO
--- NOTE | 2020-03-30 14:36 | PAINCON ---
[address] [address] PAIN MANAGEMENT CONSULTATION Name: PILAR FERMIN MICHAEL Room: [facility]#: [id number] Admission: 03/11/20 Attend Phys: Romulo Barrett MD Discharge: Date of : 45 Report #: [id number] THIS REPORT FOR: //name// cc: Flakito Olmedo Meng, Zhao ~ CC: Darryn Fraga Meng DATE OF SERVICE: 03/11/2020 CHIEF COMPLAINT: Low back pain into the left leg that goes all the way down to the foot. HISTORY: The patient is a 74-year-old female who has been seen in the pain clinic in the past because of lumbar radiculopathy. She has undergone epidural steroid injections over the years. These have been beneficial. She has noticed that her pain has increased. Activity such as walking, sitting, standing, bending, and lifting, all have become more problematic. She notes that there is pain that involves her left leg. This radiates down into her foot. Pain worsened about 3 weeks ago. She has returned today with hopes of an injection. She has been using nonsteroidal anti-inflammatory medications like ibuprofen. She has also used tramadol 50 mg at bedtime. These have not significantly improved her pain. ALLERGIES: No known drug allergies. CURRENT MEDICATIONS: Calcium, vitamin D3, vitamin K, Prolia 60 mg, Dexilant 60 mg, Voltaren gel 1% q.i.d. to the affected upper extremity, Advair 250 mg 1 puff b.i.d., ibuprofen 800 mg, Combivent 14 mg inhaler 1 puff q.i.d., Procardia 30 mg, MiraLax 17 grams, Ultram 50 mg, shingles vaccine in 2012, Mirapex bedtime for restless legs. PAIN CLINIC ASSESSMENT AND PQRS: 1. The patient has some osteoarthritic changes in the lower extremities of her back. She is not being treated for rheumatoid arthritis. 2. Height 5 feet 1 inch, weight 121 pounds, BMI is 23. 3. Vital signs: Blood pressure 153/48, heart rate 16, room air saturation 92%, temperature 97.4. 4. Pain intensity 10. 5. Fall history: The patient has not fallen in the last 3 months. 6. Blood thinner. The patient is not on a blood thinning medication. 7. Hypertension. The patient is being treated for hypertension. 8. Opioids greater than 6 weeks. The patient receives medications from her primary. 9. Risk assessment tool, [place] [address] PAIN MANAGEMENT CONSULTATION Name: DAYAMIDEBRARachnaPILAR MICHAEL Room: [facility]#: [id number] Admission: 03/11/20 Attend Phys: Romulo Barrett MD Discharge: Date of : 45 Report #: [id number] 10. Functional assessment tool reviewed. 11. Recreational drug use: The patient denies. 12. Tobacco: The patient smokes 2-3 cigarettes daily for the last 50 years. 13. Alcohol. The patient denies use of alcoholic beverages on a regular basis. PHYSICAL EXAMINATION: GENERAL: The patient is a well-developed, well-nourished white female. Appears her stated age. She is alert and oriented x 3. Her affect is appropriate. Speech is fluent. HEENT: Normocephalic, atraumatic. Extraocular eye muscles intact. Sclerae nonicteric. The patient is wearing a facial covering. NECK: Without adenopathy or JVD. HEART: Regular rate. LUNGS: Generally clear, decreased effort. ABDOMEN: Nontender. Bowel sounds present. MUSCULOSKELETAL: The patient without significant scoliosis, kyphosis or lordosis. The upper extremity muscle strength judged to be 4+/5 for the major muscle groups in the upper extremity. The patient has pain and discomfort that is radiating down the L5-S1 dermatomal distribution involving her foot and with numbness and tingling radiating down into her foot. Lower extremity muscle strength judged to be 4+/5 for the major muscle groups in the lower extremity. The patient does walk with an antalgic gait. IMPRESSION: 1. Lumbar radiculopathy with L5-S1 nerve root irritation. 2. Lumbar spondylosis with radiculopathy. 3. Lumbar degeneration. 4. Facet arthropathy of the lumbar spine. 5. Chronic intractable pain. 6. Tobacco habituation. 7. Hypertension. 8. History of pneumonia, lower lobe in 2011, 2017. 9. Colon problems. 10. Stomach problems. 11. Joint disease/arthritis. 12. Restless legs syndrome. RECOMMENDATIONS: We discussed treatment options with the patient. Risks and benefits of an epidural steroid injection were discussed. They include but are not limited to infection, worsening of pain, no improvement in pain, nerve damage and the patient elects to proceed. PROCEDURE NOTE: The patient was taken to the procedure area. She was then assisted in getting on the examination table. A pillow was placed under the abdomen to bolster and improve positioning. Her back was sterilely prepped with a Betadine solution. A 0.25% bupivacaine using a 25-[place] [address] PAIN MANAGEMENT CONSULTATION Name: PILAR FERMIN Room: [facility]#: [id number] Admission: 03/11/20 Attend Phys: Romulo Barrett MD Discharge: Date of : 45 Report #: [id number] anesthetize the L5-S1 area. A 17-gauge Tuohy with loss of resistance technique was used to gain access to the epidural space. There was no CSF, heme or paresthesia. Total of 80 mg Depo-Medrol, 40 mg triamcinolone were injected. The patient tolerated the procedure well. She remained in the Pain Clinic for an appropriate amount of time. She will call us if she has any concerns. A total of 6 seconds fluoroscopy time was used. <ELECTRONICALLY SIGNED> By: Romulo Barrett MD 03/30/20 1436 1309 0347N. Riccardo Barrett MD /nt
== END | disposition home or self-care (01) ==
LOC: M.PC 08:37
PROVIDERS: ATTEND Anesthesiology Pain Medicine
DX: Z12.31 Encounter for screening mammogram for malignant neoplasm of breast (principal); M54.5 Low back pain; M47.26 Other spondylosis with radiculopathy, lumbar region; M51.16 Intervertebral disc disorders with radiculopathy, lumbar region; I10 Essential (primary) hypertension; G89.29 Other chronic pain; M19.90 Unspecified osteoarthritis, unspecified site; Z87.01 Personal history of pneumonia (recurrent); Z79.899 Other long term (current) drug therapy; Z98.890 Other specified postprocedural states

== ENCOUNTER → 2020-10-26 | Outpatient (CLI) | payer OTHER | LOC: M.RAD 12:43 | PROVIDERS: ATTEND Registered Nurse Diabetes Educator | DX: R05 Cough (principal) ==

== ENCOUNTER → 2021-06-16 | Outpatient (CLI) | payer BC | LOC: M.RAD 11:11 | PROVIDERS: ATTEND Emergency Medicine | DX: Z12.31 Encounter for screening mammogram for malignant neoplasm of breast (principal); M85.88 Other specified disorders of bone density and structure, other site; M81.0 Age-related osteoporosis without current pathological fracture ==